=== PATIENT | female | born 1950 | race Hispanic/Latino ===

== ENCOUNTER 2023-01-09 13:08 | Outpatient (CLI) | payer OTHER, MEDICAID | END 2023-01-09 13:09 | disposition home or self-care (01) | LOC: CSHWCC 13:08 | PROVIDERS: ATTEND Nurse Practitioner Family | DX: R60.9 Edema, unspecified (principal); L89.313 Pressure ulcer of right buttock, stage 3; I87.331 Chronic venous hypertension (idiopathic) with ulcer and inflammation of right lower extremity; L97.812 Non-pressure chronic ulcer of other part of right lower leg with fat layer exposed | CPT/HCPCS: 11042; 97139; 97607; G0463; 99204 ==

== ENCOUNTER 2023-01-16 11:08 | Outpatient (CLI) | payer OTHER, MEDICAID | END 2023-01-16 11:09 | disposition home or self-care (01) | LOC: CSHWCC 11:08 | PROVIDERS: ATTEND Nurse Practitioner Family | DX: R60.9 Edema, unspecified (principal); I87.331 Chronic venous hypertension (idiopathic) with ulcer and inflammation of right lower extremity; L97.812 Non-pressure chronic ulcer of other part of right lower leg with fat layer exposed | CPT/HCPCS: 97607 ==

== ENCOUNTER 2023-01-23 15:01 | Outpatient (CLI) | payer OTHER, MEDICAID | END 2023-01-23 15:02 | disposition home or self-care (01) | LOC: CSHWCC 15:01 | PROVIDERS: ATTEND Nurse Practitioner Family | DX: L89.323 Pressure ulcer of left buttock, stage 3 (principal); L89.312 Pressure ulcer of right buttock, stage 2; I87.331 Chronic venous hypertension (idiopathic) with ulcer and inflammation of right lower extremity; L97.812 Non-pressure chronic ulcer of other part of right lower leg with fat layer exposed | CPT/HCPCS: 97139; 97607; G0463; 99213 ==

== ENCOUNTER 2023-01-30 15:46 | Outpatient (CLI) | payer OTHER, MEDICAID | END 2023-01-30 15:47 | disposition home or self-care (01) | LOC: CSHWCC 15:46 | PROVIDERS: ATTEND Nurse Practitioner Family | DX: L89.323 Pressure ulcer of left buttock, stage 3 (principal); L89.312 Pressure ulcer of right buttock, stage 2; R60.0 Localized edema; I87.331 Chronic venous hypertension (idiopathic) with ulcer and inflammation of right lower extremity; L97.812 Non-pressure chronic ulcer of other part of right lower leg with fat layer exposed | CPT/HCPCS: 11042; 29581; 97139; G0463; 99213 ==

== ENCOUNTER 2023-02-06 13:52 | Outpatient (CLI) | payer OTHER, MEDICAID | END 2023-02-06 13:53 | disposition home or self-care (01) | LOC: CSHWCC 13:52 | PROVIDERS: ATTEND Nurse Practitioner Family | DX: R60.9 Edema, unspecified (principal); I87.331 Chronic venous hypertension (idiopathic) with ulcer and inflammation of right lower extremity; L97.812 Non-pressure chronic ulcer of other part of right lower leg with fat layer exposed; L89.323 Pressure ulcer of left buttock, stage 3; L89.312 Pressure ulcer of right buttock, stage 2 | CPT/HCPCS: 29581 ==

== ENCOUNTER 2023-02-13 08:13 | Outpatient (CLI) | payer OTHER, MEDICAID | END 2023-02-13 08:14 | disposition home or self-care (01) | LOC: CSHWCC 08:13 | PROVIDERS: ATTEND Nurse Practitioner Family | DX: L89.323 Pressure ulcer of left buttock, stage 3 (principal); I87.331 Chronic venous hypertension (idiopathic) with ulcer and inflammation of right lower extremity; L97.812 Non-pressure chronic ulcer of other part of right lower leg with fat layer exposed; R60.0 Localized edema; L89.312 Pressure ulcer of right buttock, stage 2 | CPT/HCPCS: 97602 ==

== ENCOUNTER 2023-12-02 11:29 | Outpatient (CLI) | payer OTHER, MEDICARE | END 2023-12-02 11:30 | disposition home or self-care (01) | LOC: CSHWCC 11:29 | PROVIDERS: ATTEND Nurse Practitioner Family | DX: I87.312 Chronic venous hypertension (idiopathic) with ulcer of left lower extremity (principal); E11.622 Type 2 diabetes mellitus with other skin ulcer; L97.222 Non-pressure chronic ulcer of left calf with fat layer exposed; L08.9 Local infection of the skin and subcutaneous tissue, unspecified | CPT/HCPCS: 87070; 87077; 87186; 87205 ==

== ENCOUNTER 2023-12-16 11:47 | Outpatient (CLI) | payer OTHER, MEDICARE | END 2023-12-16 11:48 | disposition home or self-care (01) | LOC: CSHWCC 11:47 | PROVIDERS: ATTEND Nurse Practitioner Family | DX: L89.323 Pressure ulcer of left buttock, stage 3 (principal); I87.312 Chronic venous hypertension (idiopathic) with ulcer of left lower extremity; E11.622 Type 2 diabetes mellitus with other skin ulcer; L97.222 Non-pressure chronic ulcer of left calf with fat layer exposed; L08.9 Local infection of the skin and subcutaneous tissue, unspecified | CPT/HCPCS: 11042 ==

== ENCOUNTER 2023-12-23 11:19 | Outpatient (CLI) | payer OTHER, MEDICARE | END 2023-12-23 11:20 | disposition home or self-care (01) | LOC: CSHWCC 11:19 | PROVIDERS: ATTEND Nurse Practitioner Family | DX: L89.323 Pressure ulcer of left buttock, stage 3 (principal); I87.312 Chronic venous hypertension (idiopathic) with ulcer of left lower extremity; E11.622 Type 2 diabetes mellitus with other skin ulcer; L97.222 Non-pressure chronic ulcer of left calf with fat layer exposed; L08.9 Local infection of the skin and subcutaneous tissue, unspecified | CPT/HCPCS: 11042 ==

== ENCOUNTER 2023-12-26 15:52 | Outpatient (CLI) | payer OTHER, MEDICARE | END 2023-12-26 15:53 | disposition home or self-care (01) | LOC: CSHWCC 15:52 | PROVIDERS: ATTEND Nurse Practitioner Family | DX: L89.323 Pressure ulcer of left buttock, stage 3 (principal); I87.312 Chronic venous hypertension (idiopathic) with ulcer of left lower extremity; E11.622 Type 2 diabetes mellitus with other skin ulcer; L97.222 Non-pressure chronic ulcer of left calf with fat layer exposed; L08.9 Local infection of the skin and subcutaneous tissue, unspecified | CPT/HCPCS: 29581 ==

== ENCOUNTER 2023-12-31 15:47 | Outpatient (CLI) | payer OTHER, MEDICARE | END 2023-12-31 15:48 | disposition home or self-care (01) | LOC: CSHWCC 15:47 | PROVIDERS: ATTEND Nurse Practitioner Family | DX: L89.323 Pressure ulcer of left buttock, stage 3 (principal); I87.312 Chronic venous hypertension (idiopathic) with ulcer of left lower extremity; E11.622 Type 2 diabetes mellitus with other skin ulcer; L97.222 Non-pressure chronic ulcer of left calf with fat layer exposed; L08.9 Local infection of the skin and subcutaneous tissue, unspecified | CPT/HCPCS: 11042 ==